=== PATIENT | female | born 1960 | race Caucasian/White ===

== ENCOUNTER 2017-04-08 14:00 | Emergency (ER) | payer OTHER ==
[2017-04-08 14:15] VITALS: BP 130/77
[2017-04-08] MEDS ORDERED: TORADOL IM ONE (15:26)
--- NOTE | 2017-04-08 15:34 | Emergency Department Report ---
ED Back Pain/Injury HPI - General Chief Complaint: Extremity Injury, Lower Stated Complaint: LEG PAIN Time Seen by Provider: 04/08/17 14:37 Source: patient Limitations: Physical Limitation - History of Present Illness Initial Comments: This is a 56-year-old female nontoxic or ill in appearance presents to the ED c/ o of low back pain radiating to right lower extremity. Patient denies any trauma or direct blows. Patient stated she was sleeping and wake up that morning with sharp pain radiating to right LE. Patient stated onset of symptoms occurred 4 days ago. Patient denies any n/v, bladder or bowel instability, fever , chills, stiff neck, headache, chest pain, shortness of breathe, numbness or tingling. PAtient stated had similar symptoms in the past but has subsided without medical treatment. Patient states allergies to acetaminophen and PCN. Denies any significant PMH. MD Complaint: back pain -: Gradual, days(s) (4) Similar Symptoms Previously: Yes Place: home Radiation: buttocks, right leg Severity: moderate Severity scale (0 -10): 7 Quality: sharp Consistency: constant Improves With: supine, sitting upright Worsens With: movement, walking Associated Symptoms: denies other symptoms. denies: confusion, weakness, chest pain, numbness, difficulty walking, cough, difficulty urinating, diaphoresis, incontinence, fever/chills, constipation, headaches, abdominal pain, loss of appetite, malaise, nausea/vomiting, rash, seizure, shortness of breath, syncope - Related Data Previous Rx's Medication Instructions Recorded Last Taken Type Ibuprofen [Motrin 600 MG tab] 600 mg PO Q8H PRN #30 tablet 04/08/17 Unknown Rx predniSONE [Deltasone] 20 mg PO BID #10 tab 04/08/17 Unknown Rx Allergies Allergy/AdvReac Type Severity Reaction Status Date / Time acetaminophen [From Vicodin] Allergy Rash Verified 04/08/17 14:08 ampicillin Allergy Rash Verified 04/08/17 14:08 hydrocodone bitartrate Allergy Rash Verified 04/08/17 14:08 [From Vicodin] ED Review of Systems ROS: Stated complaint: LEG PAIN Other details as noted in HPI Constitutional: denies: chills, fever Eyes: denies: eye pain, eye discharge, vision change ENT: denies: ear pain, throat pain Respiratory: denies: cough, shortness of breath, wheezing Cardiovascular: denies: chest pain, palpitations Endocrine: no symptoms reported Gastrointestinal: denies: abdominal pain, nausea, diarrhea Genitourinary: denies: urgency, dysuria, discharge Musculoskeletal: back pain. denies: joint swelling, arthralgia Skin: denies: rash, lesions Neurological: denies: headache, weakness, paresthesias Psychiatric: denies: anxiety, depression Hematological/Lymphatic: denies: easy bleeding, easy bruising ED Past Medical Hx - Past Medical History Hx Arthritis: Yes (LEFT KNEE / HANDS) - Surgical History Additional Surgical History: LEFT KNEE X 2. OVARIAN CYST REMOVED. HERNIA REPAIR. TUBAL LIGATION. - Social History Smoking Status: Never Smoker Substance Use Type: None - Medications Home Medications: Home Medications Medication Instructions Recorded Confirmed Last Taken Type Ibuprofen [Motrin 600 MG tab] 600 mg PO Q8H PRN #30 tablet 04/08/17 Unknown Rx predniSONE [Deltasone] 20 mg PO BID #10 tab 04/08/17 Unknown Rx ED Physical Exam - General Limitations: Physical Limitation General appearance: alert, in no apparent distress - Head Head exam: Present: atraumatic, normocephalic, normal inspection - Eye Eye exam: Present: normal appearance, PERRL, EOMI. Absent: scleral icterus, conjunctival injection, nystagmus, periorbital swelling, periorbital tenderness Pupils: Present: normal accommodation - ENT ENT exam: Present: normal exam, normal orophraynx, mucous membranes moist, TM's normal bilaterally, normal external ear exam - Neck Neck exam: Present: normal inspection, full ROM. Absent: tenderness, meningismus, lymphadenopathy, thyromegaly - Respiratory Respiratory exam: Present: normal lung sounds bilaterally. Absent: respiratory distress, wheezes, rales, rhonchi, stridor, chest wall tenderness, accessory muscle use, decreased breath sounds, prolonged expiratory - Cardiovascular Cardiovascular Exam: Present: regular rate, normal rhythm, normal heart sounds. Absent: bradycardia, tachycardia, irregular rhythm, systolic murmur, diastolic murmur, rubs, gallop - GI/Abdominal GI/Abdominal exam: Present: soft, normal bowel sounds. Absent: distended, tenderness, guarding, rebound, rigid - Rectal Rectal exam: Present: deferred - Extremities Exam Extremities exam: Present: normal inspection, full ROM, normal capillary refill. Absent: tenderness, pedal edema, joint swelling, calf tenderness - Back Exam Back exam: Present: normal inspection, full ROM, paraspinal tenderness (lumbar region), vertebral tenderness (lumbar spinal tenderness). Absent: tenderness, CVA tenderness (R), CVA tenderness (L), muscle spasm, rash noted - Expanded Back Exam Expanded Back exam: Present: normal rectal tone (as per patient). Absent: saddle anesthesia Back exam: Negative Straight Leg Raising: Left, Right - Neurological Exam Neurological exam: Present: alert, oriented X3, CN II-XII intact, normal gait, reflexes normal - Psychiatric Psychiatric exam: Present: normal affect, normal mood - Skin Skin exam: Present: warm, dry, intact, normal color. Absent: rash - Other Other exam information: Normal gait. ED Course Vital Signs 04/08/17 14:11 Temperature 98.1 F Pulse Rate 81 Respiratory 17 Rate Blood Pressure 130/77 O2 Sat by Pulse 100 Oximetry - Reevaluation(s) Reevaluation #1: 04/08/17 15:36 Patient is able to speak in full sentences with no signs of distress. ED Medical Decision Making - Medical Decision Making Patient was examined by myself. CT of lumbar region obtained and dictated by radiologist. PAtient was notified of ct findings with no further questions noted. Patient received Prednisone and Motrin at d/c. WAs instructed to follow- up with primary care doctor in 3-5 days or if symptoms worsen return to the emergency department as soon as possible. At the time of d/c, patient does not seem toxic or ill in appearance. PAtient received Toradol with relief. Critical care attestation.: If time is entered above; I have spent that time in minutes in the direct care of this critically ill patient, excluding procedure time. ED Disposition Clinical Impression: Lumbar radiculopathy Low back strain Qualifiers: Encounter type: initial encounter Qualified Code(s): S39.012A - Strain of muscle, fascia and tendon of lower back, initial encounter Sciatica Qualifiers: Laterality: right Qualified Code(s): M54.31 - Sciatica, right side Disposition: - TO HOME OR SELFCARE Is pt being admited?: No Does the pt Need Aspirin: No Condition: Stable Instructions: Ibuprofen (By mouth), Prednisone (By mouth), Sciatica (ED), Low Back Strain (ED), Lumbar Radiculopathy (ED) Additional Instructions: Follow-up with orthopedic doctor in 3-5 days or if symptoms worsen such as numbness or tingling or worsening of symptoms return to the ED as soon as possible. Prescriptions: Ibuprofen [Motrin 600 MG tab] 600 mg PO Q8H PRN #30 tablet PRN Reason: Pain predniSONE [Deltasone] 20 mg PO BID #10 tab Referrals: PRIMARY CARE, [Primary Care Provider] - 3-5 Days ZENY BOSS MD [Staff Physician] - 3-5 Days REYES WHITTAKER MD [Staff Physician] - 3-5 Days [facility] [Outside] - 3-5 Days [facility] [Outside] - 3-5 Days Forms: Work/School Release Form(ED)
--- NOTE | 2017-04-08 17:01 | Cat Scan Report ---
FINAL REPORT EXAM: CT LUMBAR SPINE WO CON HISTORY: spinal tenderness TECHNIQUE: Spiral high-resolution unenhanced 1.25 millimeter axial images were obtained through the lumbar spine. Sagittal and coronal plane are reconstructions were performed. PRIORS: None. FINDINGS: Counting reference: Lumbosacral junction. For the purposes of this report, L4-L5 is considered the level of the iliac crest. Bone marrow/ Fracture: No evidence for acute or chronic fracture is seen. No evidence of a lytic or blastic process in the visualized spine. Alignment: Alignment is anatomic. T12-L1: Canal and foramina are patent. L1-L2: Canal and foramina are patent. L2-L3: Canal and foramina are patent. L3-L4: Canal and foramina are patent. L4-L5: Canal and foramina are patent. L5-S1: Canal and foramina are patent. Paraspinal soft tissues: The paraspinal soft tissues show no evidence for paravertebral hematoma or soft tissue mass. Sacrum and iliac wings: Visualized portions of the sacrum and iliac wings appear intact without fracture. The presacral soft tissues are normal in appearance. There is vacuum disc phenomenon the right sacroiliac joint related to degenerative change. Sclerosis of the ileum adjacent to the SI joint is noted related to degenerative arthritis. IMPRESSION: 1. No evidence of acute fracture. 2. No significant disc abnormality. 3. Vacuum disc phenomenon the right sacroiliac joint.
== END 2017-04-08 17:17 | disposition home or self-care (01) ==
LOC: ED 14:00
DX: S39.012A Strain of muscle, fascia and tendon of lower back, initial encounter (principal); M54.16 Radiculopathy, lumbar region; M54.31 Sciatica, right side; X58.XXXA Exposure to other specified factors, initial encounter; Y93.9 Activity, unspecified; Y92.9 Unspecified place or not applicable; Y99.9 Unspecified external cause status
CPT/HCPCS: 72131; 96372; 99283; J1885

== ENCOUNTER 2017-09-27 17:53 | Emergency (ER) | payer OTHER ==
[2017-09-27 18:03] VITALS: BP 123/72
[2017-09-28] MEDS ORDERED: MOTRIN PO ONE (00:20)
[2017-09-28] MEDS ORDERED: TESSALON PERLES PO ONE (00:20)
--- NOTE | 2017-09-28 01:11 | Emergency Department Report ---
- General Chief Complaint: Upper Respiratory Infection Stated Complaint: FLU SX Time Seen by Provider: 09/28/17 00:20 Source: patient Mode of arrival: Ambulatory Limitations: No Limitations - History of Present Illness Initial Comments: This is a 57-year-old female nontoxic, well nourished in appearance, no acute signs of distress presents to the ED with c/o of productive cough, fever, chills , body aches, rhinorrhea, nasal congestion x2 days. Patient describes productive cough as yellow mucus production. Patient agrees to sick contact with cousin which has the flu. Patient denies any recent travels, long car, recent hospital stays. Patient denies any calf pain or calf tenderness. Patient denies any chest pain, short of breath, fever, chills, nausea, vomiting , hemoptysis, numbness, tingling, headache or stiff neck. Patient states allergies to Vicodin, ampicillin. PMH includes arthiritis. MD Complaint: fever, cough, rhinorrhea, nasal congestion -: days(s) (2) Severity: mild Severity scale (0 -10): 8 Quality: aching Consistency: constant Improves With: nothing Worsens With: nothing Context: sick contacts Associated Symptoms: fever, chills, rhinorrhea, nasal congestion, cough. denies : myalgias, diaphoresis, headache, sore throat, stiff neck, chest pain, shortness of breath, abdominal pain, nausea, vomiting, diarrhea, dysuria, rash, confusion, right sweats, weight loss, epistaxis, hoarseness, ear pain Treatments Prior to Arrival: none - Related Data Previous Rx's Medication Instructions Recorded Last Taken Type Ibuprofen [Motrin 600 MG tab] 600 mg PO Q8H PRN #30 tablet 04/08/17 Unknown Rx predniSONE [Deltasone] 20 mg PO BID #10 tab 04/08/17 Unknown Rx Azithromycin [Zithromax Z-QUINTIN] 250 mg PO DAILY #6 tablet 09/28/17 Unknown Rx Benzonatate [Tessalon Perle] 100 mg PO Q6H PRN #20 capsule 09/28/17 Unknown Rx Ibuprofen [Motrin] 600 mg PO Q6H PRN #30 tablet 09/28/17 Unknown Rx Oseltamivir [Tamiflu] 75 mg PO BID #14 cap 09/28/17 Unknown Rx Allergies Allergy/AdvReac Type Severity Reaction Status Date / Time acetaminophen [From Vicodin] Allergy Rash Verified 04/08/17 14:08 ampicillin Allergy Rash Verified 04/08/17 14:08 hydrocodone bitartrate Allergy Rash Verified 04/08/17 14:08 [From Vicodin] ED Review of Systems ROS: Stated complaint: FLU SX Other details as noted in HPI Constitutional: chills, fever Eyes: denies: eye pain, eye discharge, vision change ENT: denies: ear pain, throat pain Respiratory: cough. denies: shortness of breath, wheezing Cardiovascular: denies: chest pain, palpitations Endocrine: no symptoms reported Gastrointestinal: denies: abdominal pain, nausea, diarrhea Genitourinary: denies: urgency, dysuria, discharge Musculoskeletal: denies: back pain, joint swelling, arthralgia Skin: denies: rash, lesions Neurological: denies: headache, weakness, paresthesias Psychiatric: denies: anxiety, depression Hematological/Lymphatic: denies: easy bleeding, easy bruising ED Past Medical Hx - Past Medical History Hx Arthritis: Yes (LEFT KNEE / HANDS) - Surgical History Past Surgical History?: Yes Additional Surgical History: LEFT KNEE X 2. OVARIAN CYST REMOVED. HERNIA REPAIR. TUBAL LIGATION. - Social History Smoking Status: Never Smoker Substance Use Type: None - Medications Home Medications: Home Medications Medication Instructions Recorded Confirmed Last Taken Type Ibuprofen [Motrin 600 MG tab] 600 mg PO Q8H PRN #30 tablet 04/08/17 Unknown Rx predniSONE [Deltasone] 20 mg PO BID #10 tab 04/08/17 Unknown Rx Azithromycin [Zithromax Z-QUINTIN] 250 mg PO DAILY #6 tablet 09/28/17 Unknown Rx Benzonatate [Tessalon Perle] 100 mg PO Q6H PRN #20 capsule 09/28/17 Unknown Rx Ibuprofen [Motrin] 600 mg PO Q6H PRN #30 tablet 09/28/17 Unknown Rx Oseltamivir [Tamiflu] 75 mg PO BID #14 cap 09/28/17 Unknown Rx ED Physical Exam - General Limitations: No Limitations General appearance: alert, in no apparent distress - Head Head exam: Present: atraumatic, normocephalic, normal inspection - Eye Eye exam: Present: normal appearance, PERRL, EOMI. Absent: scleral icterus, conjunctival injection, nystagmus, periorbital swelling, periorbital tenderness Pupils: Present: normal accommodation - ENT ENT exam: Present: normal exam, normal orophraynx, mucous membranes moist, TM's normal bilaterally, normal external ear exam - Neck Neck exam: Present: normal inspection, full ROM. Absent: tenderness, meningismus, lymphadenopathy, thyromegaly - Respiratory Respiratory exam: Present: normal lung sounds bilaterally. Absent: respiratory distress, wheezes, rales, rhonchi, stridor, chest wall tenderness, accessory muscle use, decreased breath sounds, prolonged expiratory - Cardiovascular Cardiovascular Exam: Present: regular rate, normal rhythm, normal heart sounds. Absent: bradycardia, tachycardia, irregular rhythm, systolic murmur, diastolic murmur, rubs, gallop - GI/Abdominal GI/Abdominal exam: Present: soft, normal bowel sounds. Absent: distended, tenderness, guarding, rebound, rigid, diminished bowel sounds - Rectal Rectal exam: Present: deferred - Extremities Exam Extremities exam: Present: normal inspection, full ROM, normal capillary refill. Absent: tenderness, pedal edema, joint swelling, calf tenderness - Back Exam Back exam: Present: normal inspection, full ROM. Absent: tenderness, CVA tenderness (R), CVA tenderness (L), muscle spasm, paraspinal tenderness, vertebral tenderness, rash noted - Neurological Exam Neurological exam: Present: alert, oriented X3, CN II-XII intact, normal gait, reflexes normal - Psychiatric Psychiatric exam: Present: normal affect, normal mood - Skin Skin exam: Present: warm, dry, intact, normal color. Absent: rash ED Course Vital Signs 09/27/17 09/28/17 17:59 00:21 Temperature 100 F H 99.3 F Pulse Rate 95 H 96 H Respiratory 16 18 Rate Blood Pressure 123/72 O2 Sat by Pulse 95 97 Oximetry - Reevaluation(s) Reevaluation #1: 09/28/17 01:05 Patient is speaking in full sentences with no signs of distress noted. ED Medical Decision Making - Medical Decision Making This is a 57-year-old female that presents with upper respiratory infection and influenza. Patient is stable and was examined by me. Chest x-ray has been obtained and dictated by radiologist with normal exam. Patient is notified of x -ray results with no questions noted. Due to patient having symptoms of upper respiratory infection and symptoms of influenza and worsening I will treat patient empirically Tamiflu with zpak. Patient is within the >72 hour window for tamiflu. Patient was instructed to increase hydration, rest and take Motrin for fever episodes. Patient received motrin and tesslone perrls in the ED. Vitals stable. Patient is nonfebrile and normal heart rate. Patient was orally hydrated and patient tolerated well known nausea or vomiting. Patient was instructed Follow-up with a primary care doctor in 3-5 days or if symptoms worsen and continue return to emergency room as soon as possible. At time time of discharge, the patient does not seem toxic or ill in appearance. No acute signs of distress noted. Patient agrees to discharge treatment plan of care. No further questions noted by the patient. Critical care attestation.: If time is entered above; I have spent that time in minutes in the direct care of this critically ill patient, excluding procedure time. ED Disposition Clinical Impression: Influenza Upper respiratory infection Qualifiers: URI type: unspecified URI Qualified Code(s): J06.9 - Acute upper respiratory infection, unspecified Disposition: - TO HOME OR SELFCARE Is pt being admited?: No Does the pt Need Aspirin: No Condition: Stable Instructions: Upper Respiratory Infection (ED), Oseltamivir (By mouth), Fever in Adults (ED), Azithromycin (By mouth), Ibuprofen (By mouth), Influenza (ED) Additional Instructions: Follow-up with a primary care doctor in 3-5 days or if symptoms worsen and continue return to emergency room as soon as possible. Increase rest, hydration and take Motrin for fever episodes. Prescriptions: Azithromycin [Zithromax Z-QUINTIN] 250 mg PO DAILY #6 tablet Benzonatate [Tessalon Perle] 100 mg PO Q6H PRN #20 capsule PRN Reason: Cough Ibuprofen [Motrin] 600 mg PO Q6H PRN #30 tablet PRN Reason: Fever Oseltamivir [Tamiflu] 75 mg PO BID #14 cap Referrals: LYNDSEY HI MD [Primary Care Provider] - 3-5 Days DILCIA MALONE MD [Staff Physician] - 3-[address] [facility] [Outside] - 3-5 Days [facility] [Outside] - 3-5 Days Forms: Work/School Release Form(ED)
--- NOTE | 2017-09-28 02:25 | XRay Report ---
FINAL REPORT PROCEDURE: XR CHEST ROUTINE 2V TECHNIQUE: PA and lateral chest radiographs were obtained. CPT 06561 HISTORY: cough congestion fever COMPARISON: No prior studies are available for comparison. FINDINGS: Heart: Normal. Mediastinum/Vessels: Normal. Lungs/Pleural space: Normal. Bony thorax: No acute osseous abnormality. Other: IMPRESSION: Normal examination.
== END 2017-09-28 02:31 | disposition home or self-care (01) ==
LOC: ED 17:53
DX: J11.1 Influenza due to unidentified influenza virus with other respiratory manifestations (principal); J06.9 Acute upper respiratory infection, unspecified
CPT/HCPCS: 71046